=== PATIENT | male | born 1970 | race Asian ===

== ENCOUNTER 2017-04-07 16:27 | Emergency (ER) | payer OTHER ==
[~2017-04-07] VITALS: Ht 167.6 cm; Wt 72.0 kg
[~2017-04-07 16:27] MED LIST: OMEP20CA9
[2017-04-07 17:34] VITALS: Ht 167.6 cm; Wt 72.0 kg
[2017-04-07] MEDS ORDERED: IBUP-1542 PO (19:04)
[2017-04-07] MEDS ORDERED: BENZ200C43 PO (19:04)
[2017-04-07] MEDS ORDERED: IBUPROFEN 600 MG TAB PO ONE (19:30)
--- NOTE | 2017-04-07 21:17 | ERD ---
ER Documentation Chief Complaint Date/Time DATE: 04/07/17 TIME: 21:14 Chief Complaint CAME IN WITH C/O FLU LIKE SYMPTOMS HPI Patient is a 46-year-old male presenting to the emergency department with complaints of flulike symptoms including body aches, fever, and sore throat intermittently for the past 4 days. He does report sick contacts at home with similar symptoms. He has had dry cough as well. He has taken ibuprofen at home with relief of symptoms. He did not have a flu shot this year. He denies nausea, vomiting, diarrhea, or other symptoms at this time. ROS All systems reviewed and are negative except as per history of present illness. Medications Home Meds Active Scripts Benzonatate* (Benzonatate*) 200 Mg Capsule, 200 MG PO TID Y for COUGH, #20 CAP Prov:CHRISTINA FERNANDEZ PA-C 04/07/17 Ibuprofen* (Motrin*) 600 Mg Tab, 600 MG PO Q6, #30 TAB Prov:CHRISTINA FERNANDEZ PA-C 04/07/17 Reported Medications Omeprazole* (Prilosec*) 20 Mg Capsule. 05/16/10 Allergies Allergies: Coded Allergies: No Allergy Information Available (Verified Allergy, Mild, 01/11/13) No Known Drug Allergy (Verified Allergy, Mild, 09/01/12) Uncoded Allergies: EGGPLANT (Allergy, Mild, RASH, 01/11/13) SHRIMP (Allergy, Mild, RASH , 01/11/13) PMhx/Soc History of Surgery: Yes (CBD STONE REMOVAL) Anesthesia Reaction: No Hx Neurological Disorder: No Hx Respiratory Disorders: No Hx Cardiac Disorders: Yes (CARDIOMYOPATHY) Hx Psychiatric Problems: No Hx Miscellaneous Medical Probl: No Hx Alcohol Use: No Hx Substance Use: No Hx Tobacco Use: No Smoking Status: Never smoker Physical Exam Vitals Vital Signs Date Time Temp Pulse Resp B/P Pulse Ox O2 Delivery O2 Flow Rate FiO2 04/07/17 17:34 100.5 97 18 107/64 98 Physical Exam Const: Nontoxic, well-appearing male in no acute distress. Head: Atraumatic Eyes: Normal Conjunctiva ENT: Normal External Ears, Nose and Mouth. Erythematous posterior pharynx. No tonsillar hypertrophy, exudate noted. The airway is clear. No uvular deviation. Neck: Full range of motion..~ No meningismus. Resp: Clear to auscultation bilaterally Cardio: Regular rate and rhythm, no murmurs Skin: No petechiae or rashes Back: No midline or flank tenderness Ext: No cyanosis, or edema Neur: Awake and alert Psych: Normal Mood and Affect Results 24 hrs Current Medications Medications (Trade) Dose Ordered Sig/Courtney Route PRN Reason Start Time Stop Time Status Last Admin Dose Admin Ibuprofen (Motrin) 600 mg ONCE ONCE PO 04/07/17 19:30 04/07/17 19:31 DC 04/07/17 20:10 Procedures/MDM 46-year-old male presents to the emergency department with complaints of flulike symptoms. History and physical examination is consistent with viral syndrome or influenza. Low suspicion for bacterial infection. He was also noted to have a slight temperature at 100.5F. The patient was given ibuprofen in the department and was feeling improved prior to discharge. Low suspicion for sepsis, or other emergent or life-threatening pathology at time of discharge. Patient is out of the window for Tamiflu. Strict ER return precautions were discussed. Close follow-up with the primary care physician within 1-2 days was advised. Patient given prescriptions for management of his symptoms at home. Departure Diagnosis: Primary Impression: Influenza-like symptoms Condition: Fair Patient Instructions: Influenza (Adult) Referrals: JUAN ORTIZ (PCP) Additional Instructions: Call your primary care doctor TOMORROW for an appointment during the next 1-2 days.See the doctor sooner or return here if your condition worsens before your appointment time. CHRISTINA FERNANDEZ PA-C Apr 07, 2017 21:17
== END 2017-04-07 20:14 | disposition home or self-care (01) ==
LOC: FTE 16:27
DX: R50.9 Fever, unspecified (principal); J02.9 Acute pharyngitis, unspecified; R52 Pain, unspecified
CPT/HCPCS: 99283